=== PATIENT | female | born 1980 | race Two or more races ===

== ENCOUNTER 2019-04-05 22:22 | Observation (INO) | payer BC ==
[2019-04-05] MEDS ORDERED: KETOROLAC TROMETHAMINE INJ/PF 30 MG/1 ML SDV IV ONE (22:56)
[2019-04-05] MEDS ORDERED: METHOCARBAMOL INJ/PF 1000 MG/10 ML SDV IV ONE (22:56)
[2019-04-05] MEDS ORDERED: METHYLPREDNISOLONE INJ 125 MG/2 ML SDV IV ONE (22:57)
[2019-04-05] MEDS ORDERED: NORMAL SALINE 1000 ML 1,000 ML IV ONE (22:57)
[2019-04-05] MEDS ORDERED: ONDANSETRON HCL INJ/PF 4 MG/2 ML SDV IV ONE (22:57)
[2019-04-05 23:11] LABS: ABSOLUTE BASOPHILS # (AUTO) 0.1 10^3/uL (0.0-0.2); ABSOLUTE EOSINOPHILS # (AUTO) 0.3 10^3/uL (0.0-0.6); ABSOLUTE MONOCYTES (AUTO) 0.5 10^3/uL (0.1-1.4); ABSOLUTE NEUT (AUTO) 7.9 10^3/uL (1.7-8.2); BASOPHILS % (AUTO) 0.5 % (0-2); EOSINOPHILS % (AUTO) 3.2 % (0-6); HEMATOCRIT 43.6 % (36.0-47.0); HEMOGLOBIN 14.7 g/dL (12.0-15.5); LYMPHOCYTES % (AUTO) 18.5 % (13-45); MEAN CORPUSCULAR HEMOGLOBIN 31.3 pg (27.0-33.4); MEAN CORPUSCULAR HGB CONC 33.7 g/dL (32.0-36.0); MEAN CORPUSCULAR VOLUME 93 fl (80-97); MONOCYTES % (AUTO) 4.9 % (3-13); PLATELET COUNT 252 10^3/uL (150-450); RED BLOOD COUNT 4.69 10^6/uL (3.72-5.28); RED CELL DISTRIBUTION WIDTH 13.6 % (11.5-14.0); SEGMENTED NEUTROPHILS % (AUTO) 72.9 % (42-78); TOTAL CELLS COUNTED % (AUTO) 100 %; WHITE BLOOD COUNT 10.8 10^3/uL (4.0-10.5)
[2019-04-05 23:27] LABS: ALBUMIN 4.3 g/dL (3.5-5.0); ALKALINE PHOSPHATASE 56 U/L (38-126); ANION GAP 7 (5-19); ASPARTATE AMINO TRANSFERASE 17 U/L (14-36); BILIRUBIN,DIRECT 0.2 mg/dL (0.0-0.4); BILIRUBIN,TOTAL 0.4 mg/dL (0.2-1.3); BLOOD UREA NITROGEN 17 mg/dL (7-20); CALCIUM 9.6 mg/dL (8.4-10.2); CARBON DIOXIDE 24 mmol/L (22-30); CHLORIDE 105 mmol/L (98-107); CREATINE KINASE 64 U/L (30-135); GLUCOSE 96 mg/dL (75-110)
--- NOTE | 2019-04-05 23:35 | ER Document Report ---
Entered by RYNA MCCAIN SCRIBE 04/05/19 [id number] Acting as scribe for:JEOVANNY GUTIÉRREZ MD ED General - General Chief Complaint: Back Pain Stated Complaint: BACK PAIN Time Seen by Provider: 04/05/19 22:40 Notes: Patient is a 38-year-old female arriving via EMS presenting to the emergency department complaining of back pain. Patient states that the pain is in her lower back and it is constant. Patient states that any movement exacerbates the pain. Patient states she was given 75 micrograms of Phentonal en route to the emergency department from EMS. Patient states that she has felt nauseous since being given the medication. Patient states that the pain radiates down into her thighs. Patient denies having experienced this before, having done any heavy lifting, exercising lately, or vomiting. The patient reports that she was at home when she had sudden onset of low back pain about 9 PM this evening. She denies any lifting, straining, or any other activity that could have brought this on at any time in the recent past. She does work as a [employer]. Patient reports she is allergic to doxycycline and Percocet, they both cause rashes. Later history from the boyfriend, is that she went to the health [facility] for a physical last Wednesday. She was found to have high blood pressure. She was told that the daily Motrin she was taking for her migraine headaches was causing her blood pressure to be high. She was advised to follow-up with her primary care provider. She is tried to call and make an appointment today, but was unable to get an appointment in a timely manner. This was all long before she had her sudden onset of severe low back pain this evening. - Related Data Allergies/Adverse Reactions: doxycycline Allergy (Verified 04/05/19 23:00) oxycodone [From Percocet] Allergy (Verified 04/05/19 23:01) Past Medical History - General Information source: Patient - Social History Smoking Status: Current Every Day Smoker Cigarette use (# per day): Yes - 3 cigarettes/day Chew tobacco use (# tins/day): No Smoking Education Provided: No Frequency of alcohol use: None Drug Abuse: None Occupation: [employer] Lives with: Friend Family History: Reviewed & Not Pertinent Review of Systems - Review of Systems Constitutional: No symptoms reported EENT: No symptoms reported Cardiovascular: No symptoms reported Respiratory: No symptoms reported Gastrointestinal: No symptoms reported Genitourinary: No symptoms reported Female Genitourinary: No symptoms reported Musculoskeletal: See HPI, Back pain Skin: No symptoms reported Hematologic/Lymphatic: No symptoms reported Neurological/Psychological: No symptoms reported -: Yes All other systems reviewed and negative Physical Exam - Vital signs Vitals: Pulse Ox 99 04/05/19 22:29 - Notes Notes: Physical Exam: General: Alert, covering eyes. HEENT: Normocephalic. Atraumatic. PERRL. Extraocular movements intact. Oropharynx clear. Neck: Supple. Non-tender. Back: Screams with minimal palpation of the lumbar sacral back. Respiratory: No respiratory distress. Clear and equal breath sounds bilaterally. Cardiovascular: Regular rate and rhythm. Abdominal: Normal Inspection. Non-tender. No distension. Normal Bowel Sounds. Back: Non-tender. No deformity or step off. Extremities: Moves all four extremities. Upper extremities: Normal inspection. Normal ROM. Lower extremities: Screams with minimal palpation of the posterior lateral aspect of the left thigh. No edema. Normal ROM. Neurological: Normal cognition. AAOx4. Normal speech. Psychological: Normal affect. Normal Mood. Skin: Warm. Dry. Normal color. Course - Re-evaluation Re-evalutation: 04/06/19 00:09 Patient is laying flat on the back, appears to be quite comfortable. She states that her pain is absolutely not any better than it was earlier. Explained to her that her physical exam suggests this is all muscular related, as an intra- abdominal or skeletal problem would not cause such severe tenderness in palpating the muscles as it seems to. 04/06/19 02:26 After a negative work-up so far except for the physical exam, I did review the findings with patient and her boyfriend. She still claims that she is in too much pain to move at all and refuses to attempt management at home, despite my offer to treat her with pain medication and muscle relaxers. The nurse did try to get her up, but states that she was not able to raise the bed more than 5 degrees without the patient screaming in pain. - Vital Signs Vital signs: Temp Pulse Resp BP Pulse Ox 98.1 F 11 L 122/88 H 99 04/05/19 22:41 04/06/19 02:01 04/06/19 02:01 04/06/19 02:01 - Laboratory Result Diagrams: 04/05/19 23:00 04/05/19 23:00 Laboratory results interpreted by me: 04/05/19 04/05/19 04/06/19 23:00 23:00 00:08 WBC 10.8 H Sodium 135.5 L Urine Blood SMALL H Ur Leukocyte Esterase TRACE H - Diagnostic Test Radiology reviewed: Image reviewed, Reports reviewed - Lumbar spine x-rays are unremarkable. - Consults Dr. Salazar Time consulted: 02:15 Consulted provider: will come to ER Discharge - Discharge Clinical Impression: Uncontrolled pain Acute low back pain Qualifiers: Back pain laterality: unspecified Sciatica presence: without sciatica Qualified Code(s): M54.5 - Low back pain Condition: Stable Disposition: ADMITTED INPATIENT Admitting Provider: Marie (Hospitalist) Unit Admitted: Medical Floor Scribe Attestation: 04/05/19 23:57 I personally performed the services described in the documentation, reviewed and edited the documentation which was dictated to the scribe in my presence, and it accurately records my words and actions. I personally performed the services described in the documentation, reviewed and edited the documentation which was dictated to the scribe in my presence, and it accurately records my words and actions.
[2019-04-06] MEDS ORDERED: HYDROMORPHONE HCL INJ/PF 2 MG/ML AMPULE IV ONE (00:10)
[2019-04-06] MEDS ORDERED: DIPHENHYDRAMINE HCL 50 MG/ML VIAL IV ONE (00:10)
[2019-04-06 00:23] LABS: APPEARANCE,URINE SLIGHTLY-CLOUDY; BILIRUBIN,URINE NEGATIVE (NEGATIVE); COLOR,URINE YELLOW; GLUCOSE, URINE NEGATIVE (NEGATIVE); KETONES,URINE NEGATIVE (NEGATIVE); LEUKOCYTE ESTERASE,URINE TRACE (NEGATIVE); NITRITE,URINE NEGATIVE (NEGATIVE); PROTEIN,URINE NEGATIVE (NEGATIVE); URINE SPECIFIC GRAVITY 1.015; UROBILINOGEN,URINE NEGATIVE mg/dL (<2.0)
--- NOTE | 2019-04-06 01:16 | RADIOLOGY REPORT (SQ) ---
EXAM DESCRIPTION: XR LUMBAR SPINE ANTEROPOSTERIOR, LATERAL, AND OBLIQUES COMPLETED DATE/TME: 04/06/2019 00:11 CLINICAL HISTORY: 38 years, Female, Acute low back pain COMPARISON: None. NUMBER OF VIEWS: 5 TECHNIQUE: 5 view lumbar spine LIMITATIONS: None. FINDINGS: 5 lumbar type vertebral bodies with lumbarization of the S1 segment. Height and alignment is preserved. The disc spaces are maintained. No pars defects. Sacroiliac joints are preserved. IUD in the pelvis IMPRESSION: Unremarkable exam copyright 2010 [employer]- All Rights Reserved
[2019-04-06] MEDS ORDERED: MAG HYDROX/AL HYDROX/SIMETH SUSP 30 ML UDCUP PO PRN (03:12)
[2019-04-06] MEDS ORDERED: MAGNESIUM HYDROXIDE SUSP 30 ML UDCUP PO PRN (03:12)
[2019-04-06] MEDS ORDERED: NICOTINE 21 MG/24 HR PATCH.TD24 TD PRN (03:17)
[2019-04-06] MEDS ORDERED: HYDRALAZINE HCL INJ/PF 20 MG/1 ML SDV IV PRN (03:17)
[2019-04-06] MEDS ORDERED: NALBUPHINE HCL INJ 10 MG/1 ML AMPULE IV PRN (03:17)
[2019-04-06] MEDS ORDERED: LEVALBUTEROL HCL NEB 0.63 MG/3 ML AMPUL NEB PRN (03:17)
[2019-04-06] MEDS ORDERED: ACETAMINOPHEN 325 MG TABLET PO PRN (03:17)
[2019-04-06] MEDS: DIAZEPAM INJ 10 MG/2 ML DISP.SYRIN IV SCH ×2 (04:21→11:30)
--- NOTE | 2019-04-06 06:00 | PDOC H&P ---
History of Present Illness Admission Date/PCP: 04/06/2019 02:29 No local PCP Patient complains of: Back pain History of Present Illness: CARRIE ARITA is a 38 year old female who presented to the emergency room with the acute onset of back pain. Patient admits that at 9 PM on the evening of 04/05/2019 she suddenly developed exquisitely severe pain in her lower back while engaging in her normal daily activity at her home. She describes the pain as an incredibly severe burning tearing sensation in her entire lower back radiating into her bilateral buttocks and then down the backs of both of her legs. The pain is worsened with any movement or palpation or pressure to her back or upper legs. She denies any recent injury, exercise or other activity that may have precipitated her back pain. She denies prior similar episodes and has not identified any other aggravating or ameliorating factors for her back pain. In the emergency room she was found to have negative x-rays and her laboratory evaluation was also unremarkable. Patient's pain was intractable with treatment in the ER despite use of a broad range of therapeutic agents. Patient was subsequently admitted to the hospital for pain control. Past Medical History Cardiac Medical History: Reports: Hypertension Denies: Coronary Artery Disease Pulmonary Medical History: Denies: Asthma, Chronic Obstructive Pulmonary Disease (COPD) EENT Medical History: Denies: Cataracts, Nose - Allergic rhinitis Neurological Medical History: Reports: Migraine Denies: Hemorrhagic CVA, Ischemic CVA, Seizures Endocrine Medical History: Denies: Diabetes Mellitus Type 1, Diabetes Mellitus Type 2, Hyperthyroidism, Hypothyroidism, Obesity Renal/ Medical History: Denies: Chronic Kidney Disease, Nephrolithiasis Malignancy Medical History: Reports: None GI Medical History: Denies: Cirrhosis, Crohn's Disease, Hepatitis, Ulcerative Colitis Musculoskeltal Medical History: Denies: Arthritis, Fibromyalgia, Gout Skin Medical History: Denies: Eczema, Psoriasis Psychiatric Medical History: Reports: Attention Deficit Hyperactivity Disorder, Tobacco Dependency Denies: Alcohol Dependency, Substance Abuse Traumatic Medical History: Reports: None Hematology: Denies: Anemia, Bleeding Tendencies Infectious Medical History: Reports: None Past Surgical History Past Surgical History: Reports: None Social History Information Source: Patient Lives with: Spouse/Significant other Smoking Status: Current Every Day Smoker Frequency of Alcohol Use: None Hx Recreational Drug Use: No Drugs: None Hx Prescription Drug Abuse: No - Advance Directive Resuscitation Status: Full Code Surrogate healthcare decision maker:: Estuardo Cunningham Family History Family History: Hypertension. denies: CAD, DM, Malignancy Parental Family History Reviewed: Yes Children Family History Reviewed: No Sibling(s) Family History Reviewed.: Yes Medication/Allergy Allergies/Adverse Reactions: doxycycline Allergy (Verified 04/05/19 23:00) oxycodone [From Percocet] Allergy (Verified 04/05/19 23:01) Review of Systems Constitutional: ABSENT: chills, fever(s) Eyes: ABSENT: visual disturbances, other - Ocular pain Ears: ABSENT: hearing changes, other - Ear pain Nose, Mouth, and Throat: ABSENT: mouth pain, sore throat Cardiovascular: ABSENT: chest pain, palpitations Respiratory: ABSENT: cough, dyspnea Gastrointestinal: PRESENT: nausea - After IV fentanyl administered by EMS. ABSENT: abdominal pain, constipation, diarrhea, vomiting Genitourinary: ABSENT: dysuria, hematuria Musculoskeletal: PRESENT: as per HPI, back pain. ABSENT: joint swelling, muscle weakness Integumentary: ABSENT: pruritus, rash Neurological: ABSENT: confusion, convulsions, focal weakness, memory loss, syncope Psychiatric: ABSENT: anxiety, depression Endocrine: ABSENT: cold intolerance, heat intolerance Hematologic/Lymphatic: ABSENT: easy bleeding, easy bruising Allergic/Immunologic: ABSENT: seasonal rhinorrhea Physical Exam Vital Signs: Temp Pulse Resp BP Pulse Ox 98.1 F 14 117/90 H 99 04/05/19 22:41 04/06/19 01:16 04/06/19 01:01 04/06/19 01:16 Intake & Output 04/04/19 04/05/19 04/06/19 23:59 23:59 23:59 Intake Total 1000 Balance 1000 Weight 69.9 kg General appearance: PRESENT: cooperative, other - Moderate distress secondary to back pain Head exam: PRESENT: atraumatic, normocephalic Eye exam: PRESENT: conjunctiva pink. ABSENT: conjunctival injection, scleral icterus Ear exam: PRESENT: normal external ear exam. ABSENT: bleeding, drainage Mouth exam: PRESENT: dry mucosa, neck supple Neck exam: ABSENT: JVD, thyromegaly, tracheal deviation Respiratory exam: PRESENT: clear to auscultation rosa, symmetrical, unlabored Cardiovascular exam: PRESENT: RRR. ABSENT: clicks, gallop, rubs Pulses: PRESENT: normal radial pulses, normal dorsalis pedis pul Vascular exam: PRESENT: normal capillary refill. ABSENT: pallor GI/Abdominal exam: PRESENT: normal bowel sounds, soft. ABSENT: tenderness Rectal exam: PRESENT: deferred Extremities exam: PRESENT: tenderness - Bilateral upper aspect of lower extremities exquisitely tender to the lightest touch.. ABSENT: joint swelling, pedal edema Musculoskeletal exam: PRESENT: tenderness - Exquisitely severe tenderness to palpation of the bilateral lumbar spine, buttocks and bilateral upper aspects of lower extremities. Extreme pain is experienced by the patient with even a light touch to the area.. ABSENT: deformity, dislocation Neurological exam: PRESENT: alert, oriented to person, oriented to place, orien laurel to time, oriented to situation, CN II-XII grossly intact. ABSENT: motor sensory deficit Psychiatric exam: PRESENT: anxious, normal mood Skin exam: PRESENT: dry, intact, warm. ABSENT: jaundice, rash, urticaria Results Laboratory Results: 04/05/19 23:00 04/05/19 23:00 04/05/19 04/05/19 04/05/19 23:00 23:00 23:00 WBC 10.8 H RBC 4.69 Hgb 14.7 Hct 43.6 MCV 93 MCH 31.3 MCHC 33.7 RDW 13.6 Plt Count 252 Seg Neutrophils % 72.9 Lymphocytes % 18.5 Monocytes % 4.9 Eosinophils % 3.2 Basophils % 0.5 Absolute Neutrophils 7.9 Absolute Lymphocytes 2.0 Absolute Monocytes 0.5 Absolute Eosinophils 0.3 Absolute Basophils 0.1 Sodium 135.5 L Potassium 4.0 Chloride 105 Carbon Dioxide 24 Anion Gap 7 BUN 17 Creatinine 0.66 Est GFR ( Amer) > 60 Est GFR (Non-Af Amer) > 60 Glucose 96 Calcium 9.6 Total Bilirubin 0.4 AST 17 Alkaline Phosphatase 56 Total Protein 7.0 Albumin 4.3 Serum HCG, Qual NEGATIVE Urine Color Urine Appearance Urine pH Ur Specific Barnhart Urine Protein Urine Glucose (UA) Urine Ketones Urine Blood Urine Nitrite Ur Leukocyte Esterase Urine WBC (Auto) Urine RBC (Auto) 04/06/19 00:08 WBC RBC Hgb Hct MCV MCH MCHC RDW Plt Count Seg Neutrophils % Lymphocytes % Monocytes % Eosinophils % Basophils % Absolute Neutrophils Absolute Lymphocytes Absolute Monocytes Absolute Eosinophils Absolute Basophils Sodium Potassium Chloride Carbon Dioxide Anion Gap BUN Creatinine Est GFR ( Amer) Est GFR (Non-Af Amer) Glucose Calcium Total Bilirubin AST Alkaline Phosphatase Total Protein Albumin Serum HCG, Qual Urine Color YELLOW Urine Appearance SLIGHTLY-CLOUDY Urine pH 6.0 Ur Specific Barnhart 1.015 Urine Protein NEGATIVE Urine Glucose (UA) NEGATIVE Urine Ketones NEGATIVE Urine Blood SMALL H Urine Nitrite NEGATIVE Ur Leukocyte Esterase TRACE H Urine WBC (Auto) 1 Urine RBC (Auto) 0 04/05/19 23:00 Creatine Kinase 64 Impressions: Lumbar Spine X-Ray 04/06/19 00:11 IMPRESSION: Unremarkable exam copyright 2010 [employer]- All Rights Reserved Assessment and Plan - Diagnosis (1) Intractable pain Is this a current diagnosis for this admission?: Yes Plan: Patient's intractable pain will be treated with Nubain 10 mg IV every 3 hours on a as needed basis for pain. She will also receive Valium 5 mg IV every 8 hours and Thorazine 25 mg IV every 8 hours. (2) Acute low back pain Qualifiers: Back pain laterality: bilateral Sciatica laterality: bilateral sciatica Is this a current diagnosis for this admission?: Yes Plan: Patient will have a MRI of her lumbar spine performed to evaluate her acute pain. (3) Hypertension Qualifiers: Hypertension type: unspecified Qualified Code(s): I10 - Essential (primary) hypertension Is this a current diagnosis for this admission?: Yes Plan: Patient was recently told she had hypertension after a single visit to the [facility] department. Her blood pressure was monitored closely throughout her hospital course with therapeutic intervention as needed. (4) Migraine headache Qualifiers: Migraine type: unspecified Status migrainosus presence: without status migrainosus Intractability: not intractable Qualified Code(s): G43.909 - Migraine, unspecified, not intractable, without status migrainosus Is this a current diagnosis for this admission?: Yes Plan: Patient has a history of migraine headaches. She will be monitored throughout her hospital course for the recurrence of a migraine headache and will be treated per her usual therapeutic regimen in the event that such a headache occurs. (5) Tobacco use disorder, severe, dependence Is this a current diagnosis for this admission?: Yes Plan: Smoking cessation is advised and counseled briefly at the bedside. Patient will have a nicotine replacement patch available for her use if desired. - Time Time Spent with patient: 15-24 minutes Smoking Cessation Education: 3 to 10 minutes Medications reviewed and adjusted accordingly: Yes - Inpatient Certification Based on my medical assessment, after consideration of the patient's comorbidities, presenting symptoms, or acuity I expect that the services needed warrant INPATIENT care.: Yes I certify that my determination is in accordance with my understanding of Medicare's requirements for reasonable and necessary INPATIENT services [42 CFR 412.3e].: Yes Medical Necessity: Need Close Monitoring Due to Risk of Patient Decompensation, Need for Pain Control, Risk of Diagnosis Which Will Require Inpatient Eval/Care/Monitoring
[2019-04-06] MEDS: HEPARIN SOD (PORCINE) 5,000 UNIT/ML 1 ML VIAL SUBCUT SCH ×3 (06:32→21:47)
[2019-04-06] MEDS ORDERED: CHLORPROMAZINE HCL INJ 25 MG/1 ML AMPULE ONE (06:49)
[2019-04-06] MEDS: CHLORPROMAZINE HCL INJ 25 MG/1 ML AMPULE IV SCH ×2 (06:59→15:35)
[2019-04-06 07:13] LABS: TRIGLYCERIDES 29 mg/dL (<150)
[2019-04-06 07:23] LABS: DIRECT LDL 128 mg/dL (<100)
[2019-04-06 07:29] LABS: FREE T3 3.31 pg/mL (2.77-5.27); FREE T4 (FREE THYROXINE) 0.87 ng/dL (0.78-2.19)
[2019-04-06 07:43] LABS: THYROID STIMULATING HORMONE 0.34 uIU/mL (0.47-4.68)
[2019-04-06 08:34] LABS: ALBUMIN 4.2 g/dL (3.5-5.0); ALKALINE PHOSPHATASE 51 U/L (38-126); ANION GAP 8 (5-19); ASPARTATE AMINO TRANSFERASE 16 U/L (14-36); BILIRUBIN,DIRECT 0.2 mg/dL (0.0-0.4); BILIRUBIN,TOTAL 0.4 mg/dL (0.2-1.3); BLOOD UREA NITROGEN 16 mg/dL (7-20); CALCIUM 9.3 mg/dL (8.4-10.2); CARBON DIOXIDE 24 mmol/L (22-30); CHLORIDE 106 mmol/L (98-107); GLUCOSE 137 mg/dL (75-110); POTASSIUM 4.8 mmol/L (3.6-5.0); TOTAL PROTEIN 6.8 g/dL (6.3-8.2)
--- NOTE | 2019-04-06 09:57 | RADIOLOGY REPORT (SQ) ---
EXAM DESCRIPTION: MRI LUMBAR SPINE WITHOUT COMPLETED DATE/TIME: 04/06/2019 9:10 am REASON FOR STUDY: Acute onset intractable lumbar pain w bilat radic COMPARISON: Lumbar spine five views 04/06/2019 TECHNIQUE: Sagittal and Axial imaging includes T1, T2, STIR and gradient echo sequences. Coronal T2/ HASTE imaging. LIMITATIONS: None. FINDINGS: VISUALIZED UPPER ABDOMEN: Limited evaluation. No acute or suspicious findings suggested. SEGMENTATION: The most inferior well-developed disc space is labeled L5-S1. There is a small disc sp paula between the S1 and S2 levels. ALIGNMENT: Anatomic. VERTEBRAE: Intact. BONE MARROW: Normal. No marrow replacement or reactive changes. DISC SIGNAL: Decreased T2 weighted intervertebral disc signal at L4-5 and L5-S1 POSTERIOR ELEMENTS: Generally intact. No pars defect evident. HARDWARE: None in the spine. CORD AND CONUS: Normal in size and signal intensity. Conus at the L1-2 level. SOFT TISSUES: No aortic aneurysm seen. No bulky retroperitoneal adenopathy or mass. No paraspinal mas s or fluid. T12-L1: Mild bilateral facet hypertrophy. No central or foraminal stenosis L1-L2: Mild bilateral facet hypertrophy. No central or foraminal stenosis. L2-L3: Mild bilateral facet hypertrophy. No central or foraminal stenosis L3-L4: Mild bilateral facet hypertrophy. No central or foraminal stenosis L4-L5: Broad diffuse posterior disc bulging is present with a small central disc protrusion. This mi ldly flattens the ventral thecal sac without impingement on the exiting L4 nerve roots or proximal L5 nerve roots in the lateral recess. Mild bilateral facet hypertrophy. Borderline central canal narr owing. Mild bilateral inferior foraminal narrowing without exiting L4 nerve root impingement L5-S1: Mild diffuse posterior disc bulging, mild bilateral facet hypertrophy. No central stenosis. Mild bilateral foraminal narrowing. No definite exiting L5 nerve root impingement SACRUM: Visualized upper sacrum intact. OTHER: No other significant findings. IMPRESSION: Mild degenerative changes lower lumbar spine Transitional anatomy, small disc space between the S1 and S2 levels TECHNICAL DOCUMENTATION: JOB ID: [id number] [employer]- All Rights Reserved Reading location - IP/workstation name: [email or web address]
[2019-04-06 10:07] LABS: ABSOLUTE LYMPHOCYTES (AUTO) 0.6 10^3/uL (0.5-4.7); ABSOLUTE NEUT (AUTO) 8.4 10^3/uL (1.7-8.2); BASOPHILS % (AUTO) 0.3 % (0-2); HEMATOCRIT 45.9 % (36.0-47.0); HEMOGLOBIN 15.6 g/dL (12.0-15.5); LYMPHOCYTES % (AUTO) 6.9 % (13-45); MEAN CORPUSCULAR HEMOGLOBIN 31.3 pg (27.0-33.4); MEAN CORPUSCULAR VOLUME 92 fl (80-97); MONOCYTES % (AUTO) 0.5 % (3-13); PLATELET COUNT 269 10^3/uL (150-450); RED BLOOD COUNT 4.99 10^6/uL (3.72-5.28); RED CELL DISTRIBUTION WIDTH 13.2 % (11.5-14.0); SEGMENTED NEUTROPHILS % (AUTO) 92.3 % (42-78); TOTAL CELLS COUNTED % (AUTO) 100 %; WHITE BLOOD COUNT 9.1 10^3/uL (4.0-10.5)
[2019-04-06] MEDS: FAMOTIDINE 20 MG TABLET PO SCH ×2 (12:16→21:53)
[2019-04-06] MEDS: DOCUSATE SODIUM 100 MG CAPSULE PO SCH ×2 (12:16→18:00)
[2019-04-06] MEDS ORDERED: DIAZEPAM 5 MG TABLET PO PRN (12:49)
--- NOTE | 2019-04-06 12:49 | PDOC PROGRESS REPORT ---
Subjective Progress Note for:: 04/06/19 Subjective:: 38 year old female who presented to the emergency room with the acute onset of back pain. Patient admits that at 9 PM on the evening of 04/05/2019 she suddenly developed exquisitely severe pain in her lower back while engaging in her normal daily activity at her home. She describes the pain as an incredibly severe burning tearing sensation in her entire lower back radiating into her bilateral buttocks and then down the backs of both of her legs. The pain is worsened with any movement or palpation or pressure to her back or upper legs. She denies any recent injury, exercise or other activity that may have precipitated her back pain. She denies prior similar episodes and has not identified any other aggravating or ameliorating factors for her back pain. In the emergency room she was found to have negative x-rays and her laboratory evaluation was also un remarkable. Patient's pain was intractable with treatment in the ER despite use of a broad range of therapeutic agents. Patient was subsequently admitted to the hospital for pain control. [id number]-old female admitted with complaints of acute onset of back pain. MRI of the lumbar spine was done no acute pathology except for minute degenerative changes were seen. We are going to request for consult with [facility]. Reason For Visit: INTRACTABLE BACK PAIN Physical Exam Vital Signs: Temp Pulse Resp BP Pulse Ox 98.4 F 80 14 98/65 L 100 04/06/19 08:26 04/06/19 08:26 04/06/19 08:26 04/06/19 08:26 04/06/19 08:26 Intake & Output 04/05/19 04/06/19 04/07/19 06:59 06:59 06:59 Intake Total 1200 Balance 1200 Weight 58.8 kg General appearance: PRESENT: no acute distress, cooperative Head exam: PRESENT: atraumatic Eye exam: PRESENT: PERRLA Mouth exam: PRESENT: moist, tongue midline Teeth exam: PRESENT: poor dentation Neck exam: ABSENT: carotid bruit, JVD, lymphadenopathy, thyromegaly Respiratory exam: PRESENT: clear to auscultation rosa. ABSENT: rales, rhonchi, wheezes Pulses: PRESENT: normal dorsalis pedis pul GI/Abdominal exam: PRESENT: normal bowel sounds, soft. ABSENT: distended, guarding, mass, organolmegaly, rebound, tenderness Rectal exam: PRESENT: deferred Extremities exam: PRESENT: full ROM. ABSENT: calf tenderness, clubbing, pedal edema Neurological exam: PRESENT: alert, awake, oriented to person, oriented to place, oriented to time, oriented to situation, CN II-XII grossly intact. ABSENT: motor sensory deficit Psychiatric exam: PRESENT: appropriate affect, normal mood. ABSENT: homicidal ideation, suicidal ideation Results Laboratory Results: 04/06/19 09:44 04/06/19 06:01 04/05/19 04/05/19 04/05/19 23:00 23:00 23:00 WBC 10.8 H RBC 4.69 Hgb 14.7 Hct 43.6 MCV 93 MCH 31.3 MCHC 33.7 RDW 13.6 Plt Count 252 Seg Neutrophils % 72.9 Lymphocytes % 18.5 Monocytes % 4.9 Eosinophils % 3.2 Basophils % 0.5 Absolute Neutrophils 7.9 Absolute Lymphocytes 2.0 Absolute Monocytes 0.5 Absolute Eosinophils 0.3 Absolute Basophils 0.1 Sodium 135.5 L Potassium 4.0 Chloride 105 Carbon Dioxide 24 Anion Gap 7 BUN 17 Creatinine 0.66 Est GFR ( Amer) > 60 Est GFR (Non-Af Amer) > 60 Glucose 96 Calcium 9.6 Total Bilirubin 0.4 AST 17 Alkaline Phosphatase 56 Total Protein 7.0 Albumin 4.3 Triglycerides Cholesterol LDL Cholesterol Direct VLDL Cholesterol HDL Cholesterol TSH Free T4 Free T3 pg/mL Serum HCG, Qual NEGATIVE Urine Color Urine Appearance Urine pH Ur Specific [place] Urine Protein Urine Glucose (UA) Urine Ketones Urine Blood Urine Nitrite Ur Leukocyte Esterase Urine WBC (Auto) Urine RBC (Auto) 04/06/19 04/06/19 04/06/19 00:08 06:01 06:01 WBC RBC Hgb Hct MCV MCH MCHC RDW Plt Count Seg Neutrophils % Lymphocytes % Monocytes % Eosinophils % Basophils % Absolute Neutrophils Absolute Lymphocytes Absolute Monocytes Absolute Eosinophils Absolute Basophils Sodium Potassium Chloride Carbon Dioxide Anion Gap BUN Creatinine Est GFR ( Amer) Est GFR (Non-Af Amer) Glucose Calcium Total Bilirubin AST Alkaline Phosphatase Total Protein Albumin Triglycerides 29 Cholesterol 186.50 LDL Cholesterol Direct 128 H VLDL Cholesterol 6.0 L HDL Cholesterol 55 TSH 0.34 L Free T4 0.87 Free T3 pg/mL 3.31 Serum HCG, Qual Urine Color YELLOW Urine Appearance SLIGHTLY-CLOUDY Urine pH 6.0 Ur Specific [place] 1.015 Urine Protein NEGATIVE Urine Glucose (UA) NEGATIVE Urine Ketones NEGATIVE Urine Blood SMALL H Urine Nitrite NEGATIVE Ur Leukocyte Esterase TRACE H Urine WBC (Auto) 1 Urine RBC (Auto) 0 04/06/19 04/06/19 04/06/19 06:01 06:01 09:44 WBC Cancelled 9.1 RBC Cancelled 4.99 Hgb Cancelled 15.6 H Hct Cancelled 45.9 MCV Cancelled 92 MCH Cancelled 31.3 MCHC Cancelled 34.0 RDW Cancelled 13.2 Plt Count Cancelled 269 Seg Neutrophils % Cancelled 92.3 H Lymphocytes % Cancelled 6.9 L Monocytes % Cancelled 0.5 L Eosinophils % Cancelled 0.0 Basophils % Cancelled 0.3 Absolute Neutrophils Cancelled 8.4 H Absolute Lymphocytes Cancelled 0.6 Absolute Monocytes Cancelled 0.0 L Absolute Eosinophils Cancelled 0.0 Absolute Basophils Cancelled 0.0 Sodium 138.2 Potassium 4.8 Chloride 106 Carbon Dioxide 24 Anion Gap 8 BUN 16 Creatinine 0.80 Est GFR ( Amer) > 60 Est GFR (Non-Af Amer) > 60 Glucose 137 H Calcium 9.3 Total Bilirubin 0.4 AST 16 Alkaline Phosphatase 51 Total Protein 6.8 Albumin 4.2 Triglycerides Cholesterol LDL Cholesterol Direct VLDL Cholesterol HDL Cholesterol TSH Free T4 Free T3 pg/mL Serum HCG, Qual Urine Color Urine Appearance Urine pH Ur Specific [place] Urine Protein Urine Glucose (UA) Urine Ketones Urine Blood Urine Nitrite Ur Leukocyte Esterase Urine WBC (Auto) Urine RBC (Auto) 04/05/19 04/06/19 23:00 06:01 Creatine Kinase 64 54 Impressions: Lumbar Spine MRI 04/06/19 00:00 IMPRESSION: Mild degenerative changes lower lumbar spine Transitional anatomy, small disc space between the S1 and S2 levels Lumbar Spine X-Ray 04/06/19 00:11 IMPRESSION: Unremarkable exam copyright 2010 [employer]- All Rights Reserved Assessment and Plan - Diagnosis (1) Intractable pain Is this a current diagnosis for this admission?: Yes Plan: Patient's intractable pain will be treated with Nubain 10 mg IV every 3 hours on a as needed basis for pain. She will also receive Valium 5 mg IV every 8 hours and Thorazine 25 mg IV every 8 hours. 04/06/2019-patient admitted with intractable pain patient is receiving no pain 10 mg IV every 3 as needed. She is also on Valium 5 mg IV every 8 as needed and receiving Thorazine 25 mg IV every 8 hours plan is to change the Valium to p.o. today. And to stop any pain. (2) Hypertension Qualifiers: Hypertension type: unspecified Qualified Code(s): I10 - Essential (primary) hypertension Is this a current diagnosis for this admission?: Yes Plan: Patient was recently told she had hypertension after a single visit to the [facility]. Her blood pressure was monitored closely throughout her hospital course with therapeutic intervention as needed. 04/06/2019-patient blood pressure today is 98/63. Blood pressure on the lower normal. Asymptomatic. If necessary we will start her on IV fluids. (3) Migraine headache Qualifiers: Migraine type: unspecified Status migrainosus presence: without status migrainosus Intractability: not intractable Qualified Code(s): G43.909 - Migraine, unspecified, not intractable, without status migrainosus Is this a current diagnosis for this admission?: Yes Plan: Patient has a history of migraine headaches. She will be monitored throughout her hospital course for the recurrence of a migraine headache and will be treated per her usual therapeutic regimen in the event that such a headache occurs. 04/06/2019-patient has history of migraine headaches. No complaints of headaches at the time of my examination. (4) Tobacco use disorder, severe, dependence Is this a current diagnosis for this admission?: Yes Plan: Smoking cessation is advised and counseled briefly at the bedside. Patient will have a nicotine replacement patch available for her use if desired.
[2019-04-06] MEDS: CHLORPROMAZINE HCL 25 MG TABLET PO PRN (21:53)
[2019-04-07] MEDS: HEPARIN SOD (PORCINE) 5,000 UNIT/ML 1 ML VIAL SUBCUT SCH (05:22)
[2019-04-07 06:35] LABS: HEMATOCRIT 39.9 % (36.0-47.0); HEMOGLOBIN 13.6 g/dL (12.0-15.5); MEAN CORPUSCULAR HEMOGLOBIN 31.4 pg (27.0-33.4); MEAN CORPUSCULAR HGB CONC 34.1 g/dL (32.0-36.0); MEAN CORPUSCULAR VOLUME 92 fl (80-97); PLATELET COUNT 230 10^3/uL (150-450); RED BLOOD COUNT 4.33 10^6/uL (3.72-5.28); RED CELL DISTRIBUTION WIDTH 13.5 % (11.5-14.0); WHITE BLOOD COUNT 11.5 10^3/uL (4.0-10.5)
[2019-04-07 06:55] LABS: ANION GAP 6 (5-19); BLOOD UREA NITROGEN 22 mg/dL (7-20); CALCIUM 8.8 mg/dL (8.4-10.2); CARBON DIOXIDE 26 mmol/L (22-30); CHLORIDE 105 mmol/L (98-107); GLUCOSE 98 mg/dL (75-110)
[2019-04-07 07:00] LABS: POTASSIUM 3.5 mmol/L (3.6-5.0)
[2019-04-07] MEDS ORDERED: [UNRECOGNIZED DRUG - OTHER] PO SCH (10:00)
[2019-04-07] MEDS ORDERED: DEXTROAMPHETAMINE PO SCH (10:00)
[2019-04-07] MEDS ORDERED: AMPHETAMINE PO SCH (10:00)
[2019-04-07] MEDS: DOCUSATE SODIUM 100 MG CAPSULE PO SCH (10:18)
[2019-04-07] MEDS: FAMOTIDINE 20 MG TABLET PO SCH (10:18)
[2019-04-07] MEDS: CHLORPROMAZINE HCL 25 MG TABLET PO PRN (10:24)
--- NOTE | 2019-04-07 10:36 | PDOC DISCHARGE SUMMARY ---
General - Admit/Disc Date/PCP Admission Date/Primary Care Provider: 04/06/19 02:40 Discharge Date: 04/07/19 - Discharge Diagnosis (1) Intractable pain Is this a current diagnosis for this admission?: Yes Summary: Patient's intractable pain will be treated with Nubain 10 mg IV every 3 hours on a as needed basis for pain. She will also receive Valium 5 mg IV every 8 hours and Thorazine 25 mg IV every 8 hours. 04/06/2019-patient admitted with intractable pain patient is receiving no pain 10 mg IV every 3 as needed. She is also on Valium 5 mg IV every 8 as needed and receiving Thorazine 25 mg IV every 8 hours plan is to change the Valium to p.o. today. And to stop any pain. 04/07/2019-patient is still complaining of slight pain according to her it is 10. She agreed to go home on pain medications. I suggested her to stay until she was seen by Dr. Hurd but she prefers to follow him as an outpatient. MRI of the lumbar spine indicates mild degenerative changes. (2) Hypertension Is this a current diagnosis for this admission?: Yes Summary: Patient was recently told she had hypertension after a single visit to the [facility] department. Her blood pressure was monitored closely throughout her hospital course with therapeutic intervention as needed. 04/06/2019-patient blood pressure today is 98/63. Blood pressure on the lower normal. Asymptomatic. If necessary we will start her on IV fluids. 04/07/2019-patient blood pressure today is 111/65 stable. Patient did not require any home medications. (3) Migraine headache Is this a current diagnosis for this admission?: Yes Summary: Patient has a history of migraine headaches. She will be monitored throughout her hospital course for the recurrence of a migraine headache and will be treated per her usual therapeutic regimen in the event that such a headache occurs. 04/06/2019-patient has history of migraine headaches. No complaints of headaches at the time of my examination. 04/07/2019-patient denies any headaches today. Patient was advised to continue her home medications. (4) Tobacco use disorder, severe, dependence Is this a current diagnosis for this admission?: Yes Summary: Smoking cessation is advised and counseled briefly at the bedside. Patient will have a nicotine replacement patch available for her use if desired. 04/07/2019-smoking counseling was provided again today for more than 20 minutes - Additional Information Resuscitation Status: Full Code Home Medications: Dextroamphetamine/Amphetamine [Adderall XR 10 mg Capsule] 20 cap.sr PO DAILY 04/06/19 History of Present Illness History of Present Illness: CARRIE ARITA is a 38 year old female 38 year old female who presented to the emergency room with the acute onset of back pain. Patient admits that at 9 PM on the evening of 04/05/2019 she suddenly developed exquisitely severe pain in her lower back while engaging in her normal daily activity at her home. She describes the pain as an incredibly severe b urning tearing sensation in her entire lower back radiating into her bilateral buttocks and then down the backs of both of her legs. The pain is worsened with any movement or palpation or pressure to her back or upper legs. She denies any recent injury, exercise or other activity that may have precipitated her back pain. She denies prior similar episodes and has not identified any other aggravating or ameliorating factors for her back pain. In the emergency room she was found to have negative x-rays and her laboratory evaluation was also unremarkable. Patient's pain was intractable with treatment in the ER despite use of a broad range of therapeutic agents. Patient was subsequently admitted to the hospital for pain control. Hospital Course Hospital Course: 38 year old female who presented to the emergency room with the acute onset of back pain. Patient admits that at 9 PM on the evening of 04/05/2019 she suddenly developed exquisitely severe pain in her lower back while engaging in her normal daily activity at her home. She describes the pain as an incredibly severe burning tearing sensation in her entire lower back radiating into her bilateral buttocks and then down the backs of both of her legs. The pain is worsened with any movement or palpation or pressure to her back or upper legs. She denies any recent injury, exercise or other activity that may have precipitated her back pain. She denies prior similar episodes and has not identified any other aggravating or ameliorating factors for her back pain. In the emergency room she was found to have negative x-rays and her laboratory evaluation was also unremarkable. Patient's pain was intractable with treatment in the ER despite use of a broad range of therapeutic agents. Patient was subsequently admitted to the hospital for pain control. 04/[id number]-old female admitted with complaints of acute onset of back pain. MRI of the lumbar spine was done no acute pathology except for minute degenerative changes were seen. We are going to request for consult with [facility] specialist. Physical Exam Vital Signs: Temp Pulse Resp BP Pulse Ox 98.3 F 52 L 16 98/59 L 99 04/07/19 07:39 04/07/19 07:39 04/07/19 07:39 04/07/19 07:39 04/07/19 07:39 Intake & Output 04/06/19 04/07/19 04/08/19 06:59 06:59 06:59 Intake Total 1200 598 Balance 1200 598 Weight 58.8 kg 62.3 kg General appearance: PRESENT: no acute distress, cooperative Head exam: PRESENT: atraumatic Eye exam: PRESENT: PERRLA Mouth exam: PRESENT: moist, tongue midline Neck exam: ABSENT: carotid bruit, JVD, lymphadenopathy, thyromegaly Respiratory exam: PRESENT: clear to auscultation rosa. ABSENT: rales, rhonchi, wheezes Cardiovascular exam: PRESENT: RRR. ABSENT: diastolic murmur, rubs, systolic murmur GI/Abdominal exam: PRESENT: normal bowel sounds, soft. ABSENT: distended, guarding, mass, organolmegaly, rebound, tenderness Rectal exam: PRESENT: deferred Extremities exam: PRESENT: full ROM. ABSENT: calf tenderness, clubbing, pedal edema Neurological exam: PRESENT: alert, awake, oriented to person, oriented to place, oriented to time, oriented to situation, CN II-XII grossly intact. ABSENT: motor sensory deficit Psychiatric exam: PRESENT: appropriate affect, normal mood. ABSENT: homicidal ideation, suicidal ideation Results Laboratory Results: 04/07/19 05:33 04/07/19 05:33 04/07/19 04/07/19 05:33 05:33 WBC 11.5 H RBC 4.33 Hgb 13.6 Hct 39.9 MCV 92 MCH 31.4 MCHC 34.1 RDW 13.5 Plt Count 230 Sodium 137.2 Potassium 3.5 L D Chloride 105 Carbon Dioxide 26 Anion Gap 6 BUN 22 H Creatinine 0.84 Est GFR ( Amer) > 60 Est GFR (Non-Af Amer) > 60 Glucose 98 Calcium 8.8 Magnesium 1.9 04/05/19 04/06/19 04/06/19 23:00 06:01 12:05 Creatine Kinase 64 54 60 04/06/19 17:54 Creatine Kinase 50 Impressions: Lumbar Spine MRI 04/06/19 00:00 IMPRESSION: Mild degenerative changes lower lumbar spine Transitional anatomy, small disc space between the S1 and S2 levels Lumbar Spine X-Ray 04/06/19 00:11 IMPRESSION: Unremarkable exam copyright 2011 [employer]- All Rights Reserved Qualifiers - * PATIENT BEING DISCHARGED WITH ANY OF THE FOLLOWING DIAGNOSIS: No Acute Heart Failure - Is this a Heart Failure Patient?: No Plan Discharge Plan: Going home today Time Spent: Greater than 30 Minutes
[2019-04-07 12:20] VITALS: BP 96/54
== END 2019-04-07 15:55 | disposition home or self-care (01) ==
LOC: ER 22:22 → EH 04-06 02:40 → INTOOBSV 04-06 02:40 → 5 04-06 04:08
PROVIDERS: ADMIT Emergency Medicine; ATTEND Emergency Medicine
PROC: HZ31ZZZ Individual Counseling for Substance Abuse Treatment, Behavioral (ICD-10-PCS; principal; 2019-04-07)
DX: M54.5 Low back pain (principal); I10 Essential (primary) hypertension; G43.909 Migraine, unspecified, not intractable, without status migrainosus; R11.0 Nausea; T40.4X5A Adverse effect of other synthetic narcotics, initial encounter; F17.210 Nicotine dependence, cigarettes, uncomplicated; Y92.89 Other specified places as the place of occurrence of the external cause; Z82.49 Family history of ischemic heart disease and other diseases of the circulatory system
CPT/HCPCS: 99285; 96361; 96374; 96375; 96365; 36415 ×3; 84439; 82550 ×2; 83735; 84443; 84703; 85025 ×2; 85027; 80048; 80053 ×2; 81001; 84481; 80061; 72148; 72110; 97162; 99407; G0378 ×2; J3230; J3490 ×3; J3360; J1200; J2800; J2930; J1885; J1170; J2405; J7030

== ENCOUNTER 2020-02-06 00:48 | Emergency (ER) | payer BC ==
[2020-02-06] MEDS ORDERED: RINGERS SOLUTION,LACTATED 1,000 ML IV ONE (01:33)
[2020-02-06] MEDS ORDERED: ONDANSETRON HCL INJ/PF 4 MG/2 ML SDV IV ONE (01:33)
[2020-02-06] MEDS ORDERED: HYDROMORPHONE HCL INJ/PF 2 MG/ML AMPULE IV ONE (01:38)
--- NOTE | 2020-02-06 01:50 | ER Document Report ---
ED General - General Chief Complaint: Abdominal Pain Stated Complaint: LOWER ABDOMINAL PAIN Time Seen by Provider: 02/06/20 01:45 Primary Care Provider: RAMONA STANLEY MD [ACTIVE STAFF] - Follow up as needed BELL COOK MD [Primary Care Provider] - Follow up as needed Information source: Patient, [facility] Records TRAVEL OUTSIDE OF THE [place] IN LAST 30 DAYS: No - HPI Notes: 39-year-old female history of lupus, RA, IBS presents with approximately 1 hour of severe constant right lower quadrant pain associated with nausea similar to prior pain she has had but greater in intensity. Patient had colonoscopy approximately 16 hours prior to symptom onset. Colonoscopy patient says went well and was done because of IBS symptoms. History limited by patient being in severe pain - Related Data Allergies/Adverse Reactions: doxycycline Allergy (Verified 04/05/19 23:00) oxycodone [From Percocet] Allergy (Verified 04/05/19 23:01) Home Medications: Adderall, Lialda, Zofran, Hydrocodone. Prednisone, Cipro Past Medical History - General Information source: Patient - Social History Smoking Status: Current Every Day Smoker Frequency of alcohol use: None Drug Abuse: None Family History: Hypertension. denies: CAD, DM, Malignancy Patient has homicidal ideation: No - Past Medical History Cardiac Medical History: Reports: Hx Hypertension Denies: Hx Coronary Artery Disease Pulmonary Medical History: Denies: Hx Asthma, Hx COPD Neurological Medical History: Reports: Hx Migraine. Denies: Hx Seizures Endocrine Medical History: Denies: Hx Diabetes Mellitus Type 1, Hx Diabetes Mellitus Type 2, Hx Hyperthyroidism, Hx Hypothyroidism Renal/ Medical History: Denies: Hx Peritoneal Dialysis GI Medical History: Denies: Hx Cirrhosis, Hx Crohn's Disease, Hx Hepatitis, Hx Ulcerative Colitis Musculoskeletal Medical History: Denies Hx Arthritis, Denies Hx Fibromyalgia, Denies Hx Gout Skin Medical History: Denies Hx Eczema, Denies Hx Psoriasis Psychiatric Medical History: Reports: Hx Attention Deficit Hyperactivity Disorder Denies: Hx Depression Infectious Medical History: Denies: Hx Hepatitis Review of Systems - Review of Systems -: Yes ROS unobtainable due to patient's medical condition - Severe pain Physical Exam - Vital signs Vitals: Temp 97.9 F 02/06/20 01:21 - Notes Notes: PHYSICAL EXAMINATION: GENERAL: Well-nourished adult woman in severe abdominal pain crouching on floor crying secondary to pain HEAD: Atraumatic, normocephalic. EYES: Pupils equal round and appropriate constriction, sclera anicteric, conju nctiva are normal. ENT: nares patent, moist mucous membranes. NECK: Normal range of motion, supple without lymphadenopathy LUNGS: Normal respiratory rate, normal respiratory effort HEART: No lower extremity edema, no JVD ABDOMEN: Right lower quadrant tenderness with guarding and rebound, no masses, no CVAT EXTREMITIES: Normal range of motion, no pitting or edema. No cyanosis. NEUROLOGICAL: Awake, alert, conversing appropriately, moves all extremities spontaneously. PSYCH: Normal mood, normal affect. SKIN: Warm, Dry, normal turgor, no rashes or lesions noted. Course - Re-evaluation Re-evalutation: 02/06/20 01:49 Patient is severe abdominal pain approximately 16 hours after colonoscopy, rule out perforation, rule out bleed, rule out appendicitis. Will obtain upright chest x-ray type and screen abdominal labs give pain and nausea medication and watch closely, likely surgical consult versus GI 02/06/20 03:45 Patient feels greatly improved now, abdominal exam currently nontender, able to get additional history from patient now that pain has improved. Says that she has been having similar pain numerous times over the past 1 month where after eating she feels severe right upper and right lower quadrant pain that lasts for few hours and then resolves. Has not had any imaging for the symptoms secondary to pandemic. Patient denies pelvic pain, urinary symptoms. History most concerning for biliary colic, will obtain right upper quadrant ultrasound before obtaining CT abdomen pelvis. Given patient has significantly improved and now abdominal exam nontender no indication for immediate surgical consult. 02/06/20 05:07 Cholelithiasis on ultrasound with 6 mm CBD, results cannot rule out distal CBD stone but given patient's pain has now completely resolved and has normal LFTs and lipase this can be ruled out clinically. Discussed case with Dr. Stanley given that patient's biliary colic has been severely symptomatic, although no signs of cholecystitis or choledocholithiasis currently. Gave Dr. Stanley patient's information and says that office will call patient in the morning to arrange surgery this week. I discussed this plan with patient who is happy with the plan and had no other concerns or questions. I had lengthy discussion with patient about reasons to come back to the ED which she demonstrated understanding of. Dr. Stanley came to discuss this plan with patient also. Incidental microscopic hematuria, gave copy of all lab results to follow-up with primary doctor. - Vital Signs Vital signs: Temp Pulse Resp BP Pulse Ox 97.6 F 79 16 125/87 H 100 02/06/20 06:52 02/06/20 06:52 02/06/20 06:52 02/06/20 06:52 02/06/20 06:52 - Laboratory Result Diagrams: 02/06/20 01:49 02/06/20 01:49 Laboratory results interpreted by me: 02/06/20 02/06/20 01:49 03:36 Hgb 15.9 H Urine Blood MODERATE H Discharge - Discharge Clinical Impression: Biliary colic Condition: Stable Disposition: HOME, SELF-CARE Additional Instructions: Gallbladder Disease Your evaluation shows evidence of gallbladder disease. The gallbladder is a pouch under the liver which stores bile. Stones, infection, or irritation of the gallbladder cause attacks of pain. Certain foods -- fats in particular -- may provoke attacks. The usual treatment for gallbladder disease is surgical removal of the gallbladder -- called a cholecystectomy. Hospitalization is not currently necessary. Take clear liquids only until you are pain-free. After that, you should stay on a low-fat diet, with frequent SMALL meals. Return to the ED immediately if your pain worsens or does not resolve after few hours, repeated vomiting, fever, or jaundice (a yellow color in the skin and whites of the eyes). You should be receiving a call from Dr. Stanley's office this morning. If you do not hear from them by the afternoon call the office and say that your evaluated by Dr. Stanley need to be scheduled for surgery this week. Prescriptions: Ondansetron [Zofran Odt 4 mg Tablet] 1 tab PO Q6H PRN #6 tab.rapdis PRN Reason: For Nausea/Vomiting Referrals: BELL COOK MD [Primary Care Provider] - Follow up as needed RAMONA STANLEY MD [ACTIVE STAFF] - Follow up as needed
[2020-02-06 02:04] LABS: ABSOLUTE BASOPHILS # (AUTO) 0.1 10^3/uL (0.0-0.2); ABSOLUTE EOSINOPHILS # (AUTO) 0.2 10^3/uL (0.0-0.6); ABSOLUTE LYMPHOCYTES (AUTO) 1.9 10^3/uL (0.5-4.7); ABSOLUTE MONOCYTES (AUTO) 0.5 10^3/uL (0.1-1.4); ABSOLUTE NEUT (AUTO) 7.5 10^3/uL (1.7-8.2); BASOPHILS % (AUTO) 0.6 % (0-2); EOSINOPHILS % (AUTO) 2.3 % (0-6); HEMATOCRIT 45.7 % (36.0-47.0); HEMOGLOBIN 15.9 g/dL (12.0-15.5); LYMPHOCYTES % (AUTO) 18.9 % (13-45); MEAN CORPUSCULAR HEMOGLOBIN 32.6 pg (27.0-33.4); MEAN CORPUSCULAR HGB CONC 34.8 g/dL (32.0-36.0); MEAN CORPUSCULAR VOLUME 94 fl (80-97); PLATELET COUNT 295 10^3/uL (150-450); RED BLOOD COUNT 4.88 10^6/uL (3.72-5.28); RED CELL DISTRIBUTION WIDTH 13.7 % (11.5-14.0); SEGMENTED NEUTROPHILS % (AUTO) 73.2 % (42-78); TOTAL CELLS COUNTED % (AUTO) 100 %; WHITE BLOOD COUNT 10.2 10^3/uL (4.0-10.5)
[2020-02-06 02:19] LABS: PROTHROMBIN TIME 12.1 SEC (11.4-15.4)
[2020-02-06 02:20] LABS: PARTIAL THROMBOPLASTIN TIME 28.3 SEC (23.5-35.8)
[2020-02-06 03:07] LABS: ALBUMIN 4.7 g/dL (3.5-5.0); ALKALINE PHOSPHATASE 69 U/L (38-126); ANION GAP 8 (5-19); ASPARTATE AMINO TRANSFERASE 20 U/L (14-36); BILIRUBIN,TOTAL 0.6 mg/dL (0.2-1.3); BLOOD UREA NITROGEN 10 mg/dL (7-20); CALCIUM 10.1 mg/dL (8.4-10.2); CARBON DIOXIDE 25 mmol/L (22-30); CHLORIDE 105 mmol/L (98-107); GLUCOSE 95 mg/dL (75-110); POTASSIUM 4.5 mmol/L (3.6-5.0); TOTAL PROTEIN 7.8 g/dL (6.3-8.2)
--- NOTE | 2020-02-06 03:27 | RADIOLOGY REPORT (SQ) ---
EXAM DESCRIPTION: X-ray single view chest. CLINICAL HISTORY: 39 years Female, upright, severe abd pain post colonoscopy COMPARISON: None. TECHNIQUE: Single portable x-ray view of the chest performed on 02/06/2020 at 3:15 AM FINDINGS: The lungs are well expanded and are clear. There is no evidence of a pneumothorax. The cardiac silhouette is normal in size and configuration. The mediastinal contours are normal. No acute osseous abnormality is identified. No focal soft tissue abnormalities are seen. Lines and tubes: None. IMPRESSION: No evidence of acute intrathoracic disease.
[2020-02-06 04:04] LABS: APPEARANCE,URINE CLEAR; BILIRUBIN,URINE NEGATIVE (NEGATIVE); COLOR,URINE STRAW; GLUCOSE, URINE NEGATIVE (NEGATIVE); KETONES,URINE NEGATIVE (NEGATIVE); LEUKOCYTE ESTERASE,URINE NEGATIVE (NEGATIVE); NITRITE,URINE NEGATIVE (NEGATIVE); PROTEIN,URINE NEGATIVE (NEGATIVE); URINE SPECIFIC GRAVITY 1.004; UROBILINOGEN,URINE NEGATIVE mg/dL (<2.0)
--- NOTE | 2020-02-06 04:06 | RADIOLOGY REPORT (SQ) ---
EXAM DESCRIPTION: [facility]: US ABDOMEN LIMITED CLINICAL HISTORY: 39 years Female; episodic RUQ/RLQ pain; TECHNIQUE: Right upper quadrant ultrasound was performed. COMPARISON: None. FINDINGS: Pancreas: Visualized portions are unremarkable. Liver: 11.9 cm long, slightly echogenic. No focal lesion or ductal distention Portal venous flow is hepatopedal, normal. Gallbladder: Multiple shadowing calculi. No Naranjo sign. No wall thickening or pericholecystic fluid. Common bile duct: 6 mm. Right kidney: 10 cm long. No hydronephrosis. IMPRESSION: 1. Cholelithiasis. No sonographic evidence for acute cholecystitis 2. Mild common bile duct distention. Cannot exclude distal common bile duct stone.
[2020-02-06 06:54] VITALS: BP 125/87
== END 2020-02-06 06:54 | disposition home or self-care (01) ==
LOC: ER 00:48
DX: K80.20 Calculus of gallbladder without cholecystitis without obstruction (principal); R10.31 Right lower quadrant pain; R11.0 Nausea; R10.813 Right lower quadrant abdominal tenderness; I10 Essential (primary) hypertension; M06.9 Rheumatoid arthritis, unspecified; F90.9 Attention-deficit hyperactivity disorder, unspecified type; F17.200 Nicotine dependence, unspecified, uncomplicated; Z98.890 Other specified postprocedural states; Z79.52 Long term (current) use of systemic steroids; Z79.899 Other long term (current) drug therapy; Z79.891 Long term (current) use of opiate analgesic; Z79.2 Long term (current) use of antibiotics; Z88.1 Allergy status to other antibiotic agents; Z88.6 Allergy status to analgesic agent; Z88.5 Allergy status to narcotic agent
CPT/HCPCS: 99284; 96361; 96374; 96375; 86900; 86901; 36415; 86850; 83690; 84703; 85025; 85610; 85730; 80076; 80048; 81001; 71045; 76705; J1170; J2405; J7120

== ENCOUNTER 2020-02-08 06:54 | Day surgery (SDC) | payer BC ==
[~2020-02-08 06:54] MED LIST: ACETAMINOPHEN 325 MG TABLET PO PRN; CEFAZOLIN 2 GM/D5W RTU 2 GM/50 ML RTUPB IV PRN; METRONIDAZOLE 500 MG/NS RTU 500 MG/100 ML RTUPB IV PRN; RINGERS SOLUTION,LACTATED 1,000 ML IV PRN
[2020-02-08] MEDS ORDERED: CEFAZOLIN 2 GM/D5W RTU 2 GM/50 ML RTUPB IV ONE (08:17)
[2020-02-08] MEDS ORDERED: METRONIDAZOLE 500 MG/NS RTU 500 MG/100 ML RTUPB IV ONE (08:17)
[2020-02-08] MEDS ORDERED: SCOPOLAMINE HYDROBROMIDE 1.5 MG PATCH.TD72 ONE (08:26)
[2020-02-08 08:45] LABS: HEMATOCRIT 42.2 % (36.0-47.0); HEMOGLOBIN 14.7 g/dL (12.0-15.5); MEAN CORPUSCULAR HEMOGLOBIN 32.7 pg (27.0-33.4); MEAN CORPUSCULAR HGB CONC 34.8 g/dL (32.0-36.0); MEAN CORPUSCULAR VOLUME 94 fl (80-97); PLATELET COUNT 257 10^3/uL (150-450); RED BLOOD COUNT 4.49 10^6/uL (3.72-5.28); RED CELL DISTRIBUTION WIDTH 13.7 % (11.5-14.0)
[2020-02-08 09:08] LABS: ALBUMIN 4.2 g/dL (3.5-5.0); ALKALINE PHOSPHATASE 49 U/L (38-126); AMYLASE 38 U/L (30-110); ANION GAP 9 (5-19); ASPARTATE AMINO TRANSFERASE 18 U/L (14-36); BILIRUBIN,TOTAL 0.7 mg/dL (0.2-1.3); BLOOD UREA NITROGEN 12 mg/dL (7-20); CALCIUM 9.4 mg/dL (8.4-10.2); CARBON DIOXIDE 25 mmol/L (22-30); CHLORIDE 104 mmol/L (98-107); GLUCOSE 98 mg/dL (75-110); TOTAL PROTEIN 6.9 g/dL (6.3-8.2)
[2020-02-08] MEDS ORDERED: MIDAZOLAM 2 MG/2 ML INJ ONE (09:23)
[2020-02-08] MEDS ORDERED: FENTANYL CITRATE INJ/PF 250 MCG/5 ML AMPULE ONE (09:23)
[2020-02-08] MEDS ORDERED: ONDANSETRON HCL INJ/PF 4 MG/2 ML SDV ONE (09:23)
[2020-02-08] MEDS ORDERED: DEXAMETHASONE SOD PHOSPHATE INJ 4 MG/1 ML VIAL ONE ×2 (09:23→11:47)
[2020-02-08] MEDS ORDERED: MORPHINE SULFATE 10 MG/ML INJ ONE (09:24)
[2020-02-08] MEDS ORDERED: PROPOFOL INJ 200 MG/20 ML VIAL IV ONE (09:24)
[2020-02-08] MEDS: BUPIVACAINE HCL 0.25% /EPINEPHRINE INJ/PF 30 ML SDV ONE ×2 (10:11→10:42)
[2020-02-08] MEDS ORDERED: DIPHENHYDRAMINE HCL 50 MG/ML VIAL IV PRN (10:28)
[2020-02-08] MEDS ORDERED: PROMETHAZINE HCL INJ 25 MG/1 ML VIAL IV PRN ×2 (10:28)
[2020-02-08] MEDS ORDERED: MEPERIDINE HCL/PF INJ 25 MG/1 ML DISP.SYRIN IV PRN (10:28)
[2020-02-08] MEDS ORDERED: FENTANYL CITRATE INJ/PF 100 MCG/2 ML AMPUL IV PRN ×3 (10:28)
[2020-02-08] MEDS ORDERED: MORPHINE SULFATE 10 MG/ML INJ IV PRN (10:28)
--- NOTE | 2020-02-08 10:55 | Operative Report ---
Nonrecallable Operative Report DATE OF SURGERY: 02/08/20 PREOPERATIVE DIAGNOSIS: Symptomatic cholelithiasis POSTOPERATIVE DIAGNOSIS: Symptomatic cholelithiasis OPERATION: Laparoscopic cholecystectomy SURGEON: RAMONA STANLEY ANESTHESIA: GA TISSUE REMOVED OR ALTERED: Gallbladder COMPLICATIONS: None ESTIMATED BLOOD LOSS: 10 cc INTRAOPERATIVE FINDINGS: See note PROCEDURE: After obtaining informed consent, the patient was taken to the operating room. General Anesthesia was induced; the arms were extended, and the abdomen was exposed, and prepped and draped in a sterile fashion. Instrumentation was set up for laparoscopic cholecystectomy. Surgical plan and surgical timeout were conducted. A vertical incision was made above the umbilicus, and a verres needle was inserted uneventfully into the peritoneal cavity. Pneumoperitoneum was established. The verres needle was removed and a10mm trocar was inserted and a 10mm laparoscope was inserted. Visualization of the peritoneal cavity confirmed safe uneventful entry. Under direct visualization 3 additional 5 mm ports were established, one in the subxiphoid position and second in the subcostal position. Visualization of the hepatobiliary anatomy revealed no anatomic variations. A grasper was placed on the fundus of the gallbladder and the gallbladder is elevated over the right surface of the liver; a second grasper was used to grasp the infundibulum of the gallbladder. The neck of the gallbladder and junction with the cystic duct was dissected out. The Cystic artery was in its usual location medial and cephalad to the cystic duct. The cystic artery was surrounded with a right angle clamp, clipped twice proximally and divided with laparoscopic scissors. We now opened the triangle of Calot by dividing the peritoneal reflection on both the medial and lateral sides of the cystic duct infundibular junction. The critical view was obtained. We now milked the cystic duct of any possible stones, clipped the cystic duct approximately 2 times once distally and divided with scissors. The gallbladder was now removed from the undersurface of the liver using hook cautery dissection. Graspers were repositioned and the gallbladder was removed uneventfully from the abdominal cavity through the super umbilical port site incision. The specimen was examined, then passed off to pathology for permanent analysis. We returned to the peritoneal cavity check for bleeding, and evidence of bile leak, and there was none. We Confirmed satisfactory placement of clips on cystic duct and cystic artery were secured . At this point we felt the operation was complete. The subcutaneous tissue was then anesthetized with quarter percent Marcaine Sponge and needle counts are correct. All ports removed under direct visualization pneumoperitoneum evacuated, and 5 mm port wounds closed with 3-0 Vicryl suture, benzoin and Steri-Strips. The patient was extubated, and taken to the recovery room in stable condition.
--- NOTE | 2020-02-08 11:01 | Discharge Summary ---
Discharge Summary (SDC) - Discharge Final Diagnosis: Symptomatic cholelithiasis Date of Surgery: 02/08/20 Discharge Date: 02/08/20 Condition: Good Treatment or Instructions: Clear liquid and full liquid diet today resume a regular diet tomorrow Prescriptions: Tramadol HCl [Ultram] 50 mg PO Q6HP PRN #20 tablet PRN Reason: Tramadol HCl [Ultram 50 mg Tablet] 50 mg PO Q6HP PRN #20 tablet PRN Reason: Referrals: BELL COOK MD [Primary Care Provider] - Discharge Activity: Activity As Tolerated, No Lifting Over 10 Pounds Report the Following to Your Physician Immediately: Yellow Skin - Patient is to follow-up with me in 7 to 10 days in surgery clinic, Fever over 101 Degrees, Unusual Bleeding
[2020-02-08] MEDS ORDERED: HYDROCODONE/ACETAMINOPHEN 10-325 MG TABLET PO PRN (11:02)
[2020-02-08] MEDS: FENTANYL CITRATE INJ/PF 100 MCG/2 ML AMPUL ONE ×4 (11:08→11:35)
[2020-02-08] MEDS ORDERED: ACETAMINOPHEN 1,000 MG/100 ML RTUPB IV ONE (11:46)
[2020-02-08] MEDS ORDERED: HYDROCODONE/ACETAMINOPHEN 10-325 MG TABLET ONE (12:30)
[2020-02-08 14:10] VITALS: BP 111/75
[2020-02-08] MEDS ORDERED: ROCURONIUM BROMIDE INJ 50 MG/5 ML VIAL IV ONE (14:53)
[2020-02-08] MEDS ORDERED: SUCCINYLCHOLINE CHLORIDE INJ 200 MG/10 ML VIAL ONE (14:53)
== END 2020-02-08 13:40 | disposition home or self-care (01) ==
LOC: OROUT 06:54
PROVIDERS: ATTEND Surgery
DX: K80.10 Calculus of gallbladder with chronic cholecystitis without obstruction (principal); R10.9 Unspecified abdominal pain; M32.9 Systemic lupus erythematosus, unspecified; M06.9 Rheumatoid arthritis, unspecified; F17.210 Nicotine dependence, cigarettes, uncomplicated; Z79.899 Other long term (current) drug therapy; Z88.5 Allergy status to narcotic agent; Z03.818 Encounter for observation for suspected exposure to other biological agents ruled out
CPT/HCPCS: 47562; 36415; 82150; 85027; 87635; 81025; 80076; 80048; 88304 ×2; 00790; J2250; J3490 ×3; J1100; J3010 ×2; J2270; J0330; J2405; J2704; J0690; J0131; C9803; 790